=== PATIENT | male | born 1985 | race Two or more races ===

== ENCOUNTER 2023-08-10 14:25 | Emergency (ER) | payer OTHER ==
[~2023-08-10] VITALS: Ht 177.8 cm; Wt 94.9 kg
[2023-08-10 15:22] LABS: Urine Bacteria NONE SEEN /hpf (None Seen); Urine Blood 2+ /uL (Negative); Urine Clarity Clear (Clear); Urine Color Colorless (Yellow); Urine Protein, UAD Negative (Negative); Urine Specific Gravity 1.003 (1.001-1.035); Urine Urobilinogen Normal (Negative); Urine WBC 32 /hpf (0 - 3)
[2023-08-10] MEDS ORDERED: CEPH500C PO (15:42)
[2023-08-10 15:48] VITALS: BP 124/78; PULSE 79; RESP 17; TEMP 99.3; O2SAT 98
== END 2023-08-10 15:50 | disposition home or self-care (01) ==
LOC: ER 14:25
DX: N39.0 Urinary tract infection, site not specified (principal); F17.210 Nicotine dependence, cigarettes, uncomplicated
CPT/HCPCS: 81001